=== PATIENT | male | born 1960 | race Caucasian/White ===

== ENCOUNTER 2016-08-08 10:57 | Inpatient (IN) | payer MEDICAID ==
[~2016-08-08] VITALS: Ht 182.9 cm; Wt 120.6 kg
[2016-08-08] MEDS ORDERED: IPRATROPIUM BROM 0.5 MG/2.5ML INH SOL NEB ONE (12:15)
[2016-08-08] MEDS ORDERED: ALBUTEROL SULF 2.5 MG/0.5ML(0.5%) NEB SOLN NEB ONE (12:15)
[2016-08-08 12:29] LABS: Albumin 2.8 g/dL (3.4-5.0); BUN/Creatinine Ratio 12.3; Bilirubin, Total 0.5 mg/dL (0.2-1.0); Calcium 8.4 mg/dL (8.5-10.1); Magnesium 2.5 mg/dL (1.6-2.6); Potassium 3.9 mmol/L (3.5-5.1); Total Protein 6.7 g/dL (6.4-8.2)
[2016-08-08 12:30] LABS: Basophils # (auto) 0 uL; DEFINITIVE VIEW TRANSMISSION; Eosinophils # (auto) 0.2 uL; Eosinophils % (auto) 1.5 % (0.0-7.0); Hematocrit 38.3 % (41.0-53.0); Hemoglobin 11.5 g/dL (13.5-17.5); Lymphocytes # (auto) 0.8 uL; Lymphocytes % (auto) 7.5 % (10.0-50.0); Mean Corpuscular Hemoglobin 25.3 pg (28.0-32.0); Mean Corpuscular Hgb Conc. 29.9 g/dL (32.0-36.0); Mean Corpuscular Volume 84.6 fL (80.0-100.0); Mean Platelet Volume 8.7 fL (7.4-10.4); Monocytes % (auto) 9.5 % (0.0-12.0); Neutrophils # (auto) 8.4 uL; Neutrophils % (auto) 81.5 % (37.0-80.0); Platelet Count (auto) 280 10^3/uL (140-450); Red Cell Distribution Width 19.9 % (11.6-16.0); White Blood Cell 10.4 10^3/uL (4.4-10.8)
[2016-08-08] MEDS ORDERED: NITROGLYCERIN 2% OINT 1GM PKG TD ONE ×2 (12:30→15:00)
[2016-08-08] MEDS ORDERED: FUROSEMIDE 40 MG/4 ML VIAL IV ONE (12:30)
[2016-08-08] MEDS ORDERED: methylPREDNISolone SOD SUCC 125 MG/2 ML VL IV ONE (12:30)
[2016-08-08 13:17] LABS: B-Type Natriuretic Peptide 3009.37 pg/mL (0-100); Temperature: 21.7 C (20.0-25.0)
[2016-08-08 13:41] LABS: Urine RBC None Seen /hpf (0 - 3)
[2016-08-08 14:23] LABS: Urine Bilirubin Negative (Negative); Urine Blood TRACE /uL (Negative); Urine Color Colorless (Yellow); Urine Glucose Normal (Normal); Urine Ketone Negative (Negative); Urine Nitrite Negative (Negative); Urine Urobilinogen Normal (Negative); Urine pH 5.5 (5.0-8.0)
[2016-08-08] MEDS ORDERED: LORazepam 0.5 MG TAB PO ONE (14:45)
[2016-08-08 14:53] LABS: Platelet Estimate Adequate
[2016-08-08 14:54] LABS: Anisocytosis Slight; Hypochromia Slight
[2016-08-08 14:55] LABS: Ovalocytes FEW; Tear Drop Cells FEW
[2016-08-08] MEDS ORDERED: NITROGLYCERIN 0.4 MG SL TAB SL PRN (15:00)
[2016-08-08] MEDS ORDERED: DOXYCYCLINE HYC 100MG/250ML 250 ML IV ONE (15:00)
[2016-08-08] MEDS ORDERED: DEXTROSE (50%) 50ML SYRG IV PRN (15:00)
[2016-08-08] MEDS ORDERED: hydrALAZINE HCL 25 MG TAB PO ONE (15:00)
[2016-08-08] MEDS ORDERED: LISINOPRIL 10 MG TAB PO ONE (15:00)
[2016-08-08] MEDS ORDERED: MORPHINE SULF INJ 2 MG/ML SYRINGE 1ML IV PRN (15:00)
[2016-08-08] MEDS: ASPirin 81 mg TAB PO SCH (15:28)
[2016-08-08] MEDS: ENOXAPARIN SOD 40 MG/0.4 ML SYRINGE SC SCH (15:28)
[2016-08-08 16:41] VITALS: BP 155/121
[2016-08-08 17:00] VITALS: BP 155/121
[2016-08-08] MEDS: ACCU-CHEK COMFORT CURVE STRIP VI SCH ×2 (17:00→21:44)
[2016-08-08 17:11] VITALS: BP 155/121
[2016-08-08] MEDS: InsuLIN REG 1unit/0.01ml Soln (100units/ml) SC SCH ×2 (18:12→21:49)
[2016-08-08] MEDS: FUROSEMIDE 40 MG/4 ML VIAL IV SCH (18:26)
[2016-08-08] MEDS: ALBUTEROL SULF 2.5 MG/0.5ML(0.5%) NEB SOLN NEB SCH (18:55)
[2016-08-08] MEDS: IPRATROPIUM BROM 0.5 MG/2.5ML INH SOL NEB SCH (18:55)
[2016-08-08] MEDS: ENALAPRILAT 1.25 MG/ML-1ML VIAL IV PRN (19:56)
[2016-08-08] MEDS: hydrALAZINE HCL 25 MG TAB PO SCH (21:52)
[2016-08-08 22:00] VITALS: BP 169/111
[2016-08-09 05:30] VITALS: BP 158/115
[2016-08-09] MEDS: FUROSEMIDE 40 MG/4 ML VIAL IV SCH ×2 (05:40→18:00)
[2016-08-09] MEDS: DOXYCYCLINE HYC 100MG/250ML 250 ML IV SCH ×2 (05:41→18:01)
[2016-08-09] MEDS: hydrALAZINE HCL 25 MG TAB PO SCH ×3 (05:53→22:09)
[2016-08-09] MEDS: IPRATROPIUM BROM 0.5 MG/2.5ML INH SOL NEB SCH ×4 (06:11→18:44)
[2016-08-09] MEDS: ALBUTEROL SULF 2.5 MG/0.5ML(0.5%) NEB SOLN NEB SCH ×4 (06:11→18:44)
[2016-08-09] MEDS: ACCU-CHEK COMFORT CURVE STRIP VI SCH ×4 (06:40→22:08)
[2016-08-09] MEDS: InsuLIN REG 1unit/0.01ml Soln (100units/ml) SC SCH ×4 (06:40→22:08)
[2016-08-09 06:57] LABS: Basophils # (auto) 0 uL; Basophils % (auto) 0.4 % (0.0-2.0); DEFINITIVE VIEW TRANSMISSION; Eosinophils # (auto) 0 uL; Eosinophils % (auto) 0.1 % (0.0-7.0); Hematocrit 38.2 % (41.0-53.0); Hemoglobin 11.6 g/dL (13.5-17.5); Lymphocytes # (auto) 0.4 uL; Lymphocytes % (auto) 8.6 % (10.0-50.0); Mean Corpuscular Hemoglobin 25.4 pg (28.0-32.0); Mean Corpuscular Hgb Conc. 30.3 g/dL (32.0-36.0); Mean Corpuscular Volume 83.6 fL (80.0-100.0); Monocytes # (auto) 0.2 uL; Monocytes % (auto) 5.1 % (0.0-12.0); Neutrophils # (auto) 3.6 uL; Neutrophils % (auto) 85.8 % (37.0-80.0); Platelet Count (auto) 268 10^3/uL (140-450); Red Cell Distribution Width 19.9 % (11.6-16.0); SUSPECT VIEW TRANSMISSION
[2016-08-09 07:02] LABS: Nucleated Red Blood Cells % 5.5 %
[2016-08-09 07:08] LABS: Potassium 3.4 mmol/L (3.5-5.1)
[2016-08-09 07:12] LABS: Calcium 8.4 mg/dL (8.5-10.1)
[2016-08-09 07:18] LABS: B-Type Natriuretic Peptide 3405.25 pg/mL (0-100); Temperature: 21.7 C (20.0-25.0)
[2016-08-09] MEDS: ASPirin 81 mg TAB PO SCH (08:46)
[2016-08-09] MEDS: ENOXAPARIN SOD 40 MG/0.4 ML SYRINGE SC SCH (08:47)
[2016-08-09 09:00] VITALS: BP 160/112
[2016-08-09] MEDS: NICOTINE 14 MG/24HR TOPICAL PATCH TD SCH (10:00)
[2016-08-09] MEDS ORDERED: LISINOPRIL 10 MG TAB PO SCH (10:00)
[2016-08-09 11:18] LABS: Anisocytosis Slight; Hypochromia Slight; Ovalocytes FEW; Platelet Estimate Adequate; Tear Drop Cells FEW
[2016-08-09] MEDS ORDERED: METOPROLOL TARTRATE 50 MG TAB PO ONE (11:30)
[2016-08-09] MEDS ORDERED: POTASSIUM CHL 20 Meq TABLET PO ONE (11:30)
[2016-08-09] MEDS: ALPRAZolam 0.25 MG TAB PO PRN ×2 (12:13→19:23)
[2016-08-09] MEDS: guaiFENesin 200 MG/10 ML UD PO PRN ×3 (12:13→21:10)
[2016-08-09 12:21] LABS: White Blood Cell 4.3 10^3/uL (4.4-10.8)
[2016-08-09] MEDS ORDERED: LISINOPRIL 10 MG TAB PO ONE (12:30)
[2016-08-09 12:52] VITALS: BP 153/108
[2016-08-09 14:42] VITALS: BP 158/108
[2016-08-09 17:00] VITALS: BP 149/108
[2016-08-09] MEDS: ENALAPRILAT 1.25 MG/ML-1ML VIAL IV PRN (21:11)
[2016-08-09 21:21] VITALS: BP 157/108
[2016-08-09] MEDS: METOPROLOL TARTRATE 50 MG TAB PO SCH (22:14)
[2016-08-10] MEDS: guaiFENesin 200 MG/10 ML UD PO PRN ×2 (02:03→13:05)
[2016-08-10] MEDS: ALPRAZolam 0.25 MG TAB PO PRN (03:58)
[2016-08-10 04:58] VITALS: BP 136/94
[2016-08-10] MEDS: FUROSEMIDE 40 MG/4 ML VIAL IV SCH (05:31)
[2016-08-10] MEDS: DOXYCYCLINE HYC 100MG/250ML 250 ML IV SCH (05:31)
[2016-08-10] MEDS: hydrALAZINE HCL 25 MG TAB PO SCH (05:32)
[2016-08-10] MEDS: IPRATROPIUM BROM 0.5 MG/2.5ML INH SOL NEB SCH ×2 (06:43→10:11)
[2016-08-10] MEDS: ALBUTEROL SULF 2.5 MG/0.5ML(0.5%) NEB SOLN NEB SCH ×2 (06:43→10:11)
[2016-08-10] MEDS: InsuLIN REG 1unit/0.01ml Soln (100units/ml) SC SCH ×2 (06:53→11:30)
[2016-08-10] MEDS: ACCU-CHEK COMFORT CURVE STRIP VI SCH ×2 (06:53→11:45)
[2016-08-10 07:00] LABS: BUN/Creatinine Ratio 17.9; Calcium 8.6 mg/dL (8.5-10.1); Potassium 3.4 mmol/L (3.5-5.1)
[2016-08-10 08:53] VITALS: BP 151/106
[2016-08-10] MEDS: ASPirin 81 mg TAB PO SCH (09:15)
[2016-08-10] MEDS: ENOXAPARIN SOD 40 MG/0.4 ML SYRINGE SC SCH (09:15)
[2016-08-10] MEDS: NICOTINE 14 MG/24HR TOPICAL PATCH TD SCH (09:15)
[2016-08-10] MEDS: METOPROLOL TARTRATE 50 MG TAB PO SCH (09:15)
[2016-08-10] MEDS ORDERED: LISINOPRIL 20 MG TAB PO SCH ×2 (10:00)
[2016-08-10] MEDS ORDERED: LISINOPRIL 10 MG TAB PO SCH (10:00)
[2016-08-10 10:40] VITALS: BP 151/106
[2016-08-10] MEDS ORDERED: POTASSIUM CHL 20 Meq TABLET PO ONE (11:30)
[2016-08-10 12:53] VITALS: BP 138/102
[2016-08-10 13:20] VITALS: BP 138/102
== END 2016-08-10 13:51 | disposition home or self-care (01) | DRG 194 ==
LOC: ER 10:59 → TELE 11:00 → TELE-EAST 15:46
PROVIDERS: ADMIT Internal Medicine; ATTEND Internal Medicine
DX: I11.0 Hypertensive heart disease with heart failure (principal); J96.01 Acute respiratory failure with hypoxia; E43 Unspecified severe protein-calorie malnutrition; J44.1 Chronic obstructive pulmonary disease with (acute) exacerbation; E66.9 Obesity, unspecified; F41.9 Anxiety disorder, unspecified; F17.210 Nicotine dependence, cigarettes, uncomplicated; F15.10 Other stimulant abuse, uncomplicated; I50.43 Acute on chronic combined systolic (congestive) and diastolic (congestive) heart failure; E11.65 Type 2 diabetes mellitus with hyperglycemia; Z91.19 Patient's noncompliance with other medical treatment and regimen
CPT/HCPCS: 36415; 71010; 71020; 80048; 80053; 81001; 82962; 83735; 83880; 84484; 85025; 85379; 93005; 94640; 94660; J1815; J3490